=== PATIENT | female | born 1960 | race African-American/Black ===

== ENCOUNTER 2023-11-29 07:44 | Inpatient (IN) | payer MEDICAID, OTHER ==
[~2023-11-29] VITALS: Ht 168.9 cm; Wt 83.5 kg
[2023-11-29 07:50] VITALS: O2SAT 100
[2023-11-29] MEDS: ONDANSETRON HCL 4MG/2ML INJ IV STA (08:21)
[2023-11-29] MEDS: NITROGLYCERIN OINT 1GM/INCH UDPKT TD ONE (08:21)
[2023-11-29 08:22] LABS: BASOPHILS % 0.4 % (0.0-2.0); DIFFERENTIAL COMMENT 0; EOSINOPHILS % 1.3 % (0.0-5.0); HEMATOCRIT. 38.8 % (36.0-48.0); HEMOGLOBIN. 12.8 g/dL (12.0-16.0); LYMPHOCYTES % 52.7 % (20.0-50.0); MEAN CORPUSCULAR HEMOGLOBIN 25.6 pg (28.0-32.0); MEAN CORPUSCULAR HGB CONC 32.9 g/dL (31.0-37.0); MEAN CORPUSCULAR VOLUME 77.9 fL (81.0-99.0); MEAN PLATELET VOLUME 8.2 fl (7.4-10.4); MONOCYTES % 4.8 % (2.0-8.0); NEUTROPHILS % 40.8 % (40.0-76.0); PLATELET 193 x1000/uL (130-400); RED BLOOD CELL COUNT 4.98 mill/uL (4.2-5.4); RED CELL DISTRIBUTION WIDTH 16.6 % (11.6-14.6); WHITE BLOOD COUNT 6.3 x1000/uL (4.5-11.0)
[2023-11-29 08:23] LABS: D-DIMER 0.39 mg/L FEU (<0.50); PARTIAL THROMBOPLASTIN TIME 27.9 sec (23.4-31.0); PROTHROMBIN TIME 11.5 sec (9.6-11.0)
[2023-11-29] MEDS: MORPHINE SULFATE 4 MG/ML INJ (FOR IV/IM USE) IV STA (08:27)
[2023-11-29 08:54] LABS: ALANINE AMINOTRANSFERASE 23 IU/L (10-49); ALBUMIN 4.3 g/dL (3.2-4.8); ASPARTATE AMINOTRANSFERASE 33 IU/L (<34); BILIRUBIN TOTAL 0.4 mg/dL (0.1-1.0); CARBON DIOXIDE 25 mEq/L (21-32); CHLORIDE 110 mEq/L (98-107); CREATININE 0.7 mg/dL (0.6-1.0); GLUCOSE 165 mg/dL (70-105); POTASSIUM 3.3 mEq/L (3.5-5.1); PROTEIN TOTAL 6.9 g/dL (6.0-8.3); SODIUM 142 mEq/L (136-145); TROPONIN I HIGH SENSITIVITY 5 ng/L (3.0-34); UREA NITROGEN BLOOD 7 mg/dL (9-23)
[2023-11-29 08:58] LABS: ETHANOL BLOOD < 10 mg/dL (<10)
[2023-11-29] MEDS: NITROGLYCERIN 0.4MG TABLET SL SL PRN (09:59)
[2023-11-29 10:24] LABS: TROPONIN I HIGH SENSITIVITY 5 ng/L (3.0-34)
[2023-11-29] MEDS: POTASSIUM CHLORIDE 20MEQ TABLET SR PO ONE (10:25)
[2023-11-29 13:30] VITALS: BP 146/90; PULSE 72; RESP 18; TEMP 97.5
[2023-11-29] MEDS ORDERED: INSLIS (14:15)
[2023-11-29] MEDS ORDERED: OMEP10CA5 PO (14:15)
[2023-11-29] MEDS ORDERED: HYDR25TA PO ×2 (14:15→14:31)
[2023-11-29] MEDS ORDERED: ASPI-1406 PO ×2 (14:15→14:34)
[2023-11-29] MEDS ORDERED: ATOR20TA65 MT (14:15)
[2023-11-29] MEDS ORDERED: ACETAMINOPHEN 325MG TABLET PO PRN (14:30)
[2023-11-29] MEDS ORDERED: METF-416 PO (14:34)
[2023-11-29] MEDS ORDERED: GLIM2TAB30 PO (14:34)
[2023-11-29] MEDS ORDERED: OMEP20CA14 PO (14:34)
[2023-11-29] MEDS ORDERED: INSU100I24 SUBCUT (14:34)
[2023-11-29] MEDS ORDERED: GABA-532 PO (14:34)
[2023-11-29] MEDS ORDERED: SEMA0.258 SUBCUT (14:34)
[2023-11-29] MEDS: ONDANSETRON HCL 4MG/2ML INJ IV PRN (14:50)
[2023-11-29 16:00] VITALS: BP 154/82; PULSE 81; RESP 20; TEMP 98.5
[2023-11-29 16:24] VITALS: BP 154/72; PULSE 74; RESP 20; TEMP 98
[2023-11-29] MEDS: ENOXAPARIN 40MG/0.4ML SYR SUBCUT SCH (18:30)
[2023-11-29 20:00] VITALS: BP 158/86; PULSE 75; RESP 18; TEMP 97.8
[2023-11-29 22:18] LABS: CLARITY URINE CLEAR (CLEAR); COLOR URINE YELLOW (YELLOW); GLUCOSE URINE TRACE (NEGATIVE); KETONES URINE 2+ (NEGATIVE); LEUKOCYTE ESTERASE URINE NEGATIVE (NEGATIVE); NITRITE URINE NEGATIVE (NEGATIVE); OCCULT BLOOD URINE NEGATIVE (NEGATIVE); PROTEIN URINE TRACE (NEGATIVE); SPECIFIC GRAVITY URINE 1.073 (1.005-1.030); UROBILINOGEN URINE 0.2 E.U./dL (0.2-1.0)
[2023-11-29 22:30] LABS: *AMPHETAMINES SCREEN URINE NEGATIVE (NEGATIVE); *BARBITURATES SCREEN URINE NEGATIVE (NEGATIVE); *BENZODIAZEPINES SCREEN URINE NEGATIVE (NEGATIVE); *COCAINE SCREEN URINE NEGATIVE (NEGATIVE); CANNABINOID URINE SCREEN NEGATIVE (NEGATIVE); ECSTASY MDMA SCREEN URINE NEGATIVE (NEGATIVE); METHADONE URINE SCREEN Neg (NEGATIVE); OPIATES URINE SCREEN PRESUMPTIVE POSITIVE (NEGATIVE); PHENCYCLIDINE URINE SCREEN NEGATIVE (NEGATIVE)
[2023-11-29 22:41] LABS: RBC URINE 0-2 /hpf (0-2); WBC URINE 0-2 /hpf (0-2)
[2023-11-29 22:42] LABS: BACTERIA URINE NONE SEEN; SQUAMOUS EPITHELIAL CELL URINE 1+ /lpf (RARE/1+)
[2023-11-30] VITALS: BP 149/63; PULSE 70; RESP 20; TEMP 97.7
[2023-11-30 04:30] VITALS: BP 167/67; PULSE 77; RESP 20; TEMP 98.6
[2023-11-30 04:45] VITALS: BP 155/66
[2023-11-30 08:00] VITALS: BP 145/57; PULSE 69; RESP 20; TEMP 97.8
== END 2023-11-30 12:45 | disposition left against medical advice (07) | DRG 249 ==
LOC: ER 07:44 → 8WST 12:24 → EDBEDREQ 12:27 → EDBEDREQTM 12:27 → 8WST 14:57
PROVIDERS: ADMIT Internal Medicine; ATTEND Internal Medicine
DX: K52.9 Noninfective gastroenteritis and colitis, unspecified (principal); E11.9 Type 2 diabetes mellitus without complications; E87.6 Hypokalemia; K59.00 Constipation, unspecified; E78.00 Pure hypercholesterolemia, unspecified; I10 Essential (primary) hypertension; R07.89 Other chest pain
CPT/HCPCS: 36415; 71045; 74177; 80053; 80305; 80320; 81003; 82962; 83036; 83880; 84484; 85025; 85379; 93005; 99285; J1650; J2270; J2405; G0480